=== PATIENT | female | born 1995 | race African-American/Black ===

== ENCOUNTER 2019-10-04 02:04 | Emergency (ER) | payer OTHER ==
[2019-10-04 02:35] VITALS: TEMP 98.1; BMI 21.2
[2019-10-04] MEDS ORDERED: ONDANSETRON 4 MG/2 ML VIAL IVPUSH ONE (02:43)
[2019-10-04] MEDS ORDERED: morphine SULFATE 4 MG/ML VIAL ONE (02:43)
[2019-10-04] MEDS ORDERED: morphine CARPU-JECT 4 MG/1 ML DISP.SYRIN IVPUSH ONE (02:43)
[2019-10-04] MEDS ORDERED: ONDANSETRON 4 MG/2 ML VIAL ONE (02:44)
[2019-10-04] MEDS ORDERED: SODIUM CHLORIDE 1,000 ML IV STA ×2 (02:46→03:01)
--- NOTE | 2019-10-04 03:09 | PDOC ---
Attending Attestation - Resident Resident Name: Wagner Hancock - ED Attending Attestation I have performed the following: I have examined & evaluated the patient, The case was reviewed & discussed with the resident, I agree w/resident's findings & plan - HPI HPI: 10/04/19 05:28 Pt comes with chest pain and a sickle cell crisis. - Physicial Exam PE: 10/04/19 05:39 Low back pain and chest pain Pt has no fever and no chills SHe has no rashes clear chest normal heart rate abd soft NT ND +BS Pt has no neuro deficits. - Medical Decision Making 11/03/19 02:37 Pt feeling better and will go home with analgecis.
--- NOTE | 2019-10-04 03:14 | PDOC ---
History of Present Illness - General Chief Complaint: Pain Stated Complaint: SICKLE CELL ANEMIA Time Seen by Provider: 10/04/19 03:00 - History of Present Illness Initial Comments: 10/04/19 03:01 Ms. Ricketts is a 24 yo female w/ pmh of SCD who presents for evaluation of acute sickle cell crisis. Patient reports this is typical of her crisis and localizes pain to her lower back / gluteal region. Last was several months ago, she does not know what prompted this. Patient reports they were getting ready "to go out" when symptoms of pain started. She denies other symptoms at this time other than pain. Reports morphine works for her pain. The patient denies chest pain, shortness of breath, headache and dizziness. Denies fever, chills, nausea, vomit, diarrhea and constipation. Denies dysuria, frequency, urgency and hematuria. Past History - Past Medical History Allergies/Adverse Reactions: Allergies Allergy/AdvReac Type Severity Reaction Status Date / Time No Known Allergies Allergy Verified 10/04/19 02:33 Home Medications: Ambulatory Orders Oxycodone HCl/Acetaminophen [Percocet 5/325 -] 1 tab PO Q4H PRN #10 tablet 05/24/15 Ferrous Sulfate 325 mg PO BID 08/28/19 Folic Acid 1 mg PO DAILY 08/28/19 Hydroxyurea 500 mg PO BID 08/28/19 Anemia: Yes (SCA) Asthma: No Cancer: No Cardiac Disorders: No CVA: No COPD: No CHF: No Dementia: No Diabetes: No GI Disorders: No Disorders: No HTN: No Hypercholesterolemia: No Liver Disease: No Seizures: No Thyroid Disease: No - Reproductive History Cervical CA: Yes Dysfunctional Uterine Bleeding: Yes Ectopic : Yes Endometrial CA: Yes Polycystic Ovaries: Yes Tubal Ligation: Yes - Immunization History Immunization Up to Date: Yes - Psycho Social/Smoking Cessation Hx Smoking Status: No Smoking History: Never smoked Have you smoked in the past 12 months: No Number of Cigarettes Smoked Daily: 0 If you are a former smoker, when did you quit?: over a year ago Cigars Per Day: 0 Information on smoking cessation initiated: No 'Breaking Loose' booklet given: 04/17/12 Hx Alcohol Use: No Drug/Substance Use Hx: No Substance Use Type: None Hx Substance Use Treatment: No Review of Systems - Review of Systems Comments:: 10/04/19 03:23 GENERAL/CONSTITUTIONAL: No fever or chills. No weakness. HEAD, EYES, EARS, NOSE AND THROAT: No change in vision. No ear pain or discharge. No sore throat. CARDIOVASCULAR: No chest pain or shortness of breath RESPIRATORY: No cough, wheezing, or hemoptysis. GASTROINTESTINAL: No nausea, vomiting, diarrhea or constipation. GENITOURINARY: No dysuria, frequency, or change in urination. MUSCULOSKELETAL: +Back/lower leg pain as described. SKIN: No rash NEUROLOGIC: No headache, vertigo, loss of consciousness, or change in strength/sensation. ENDOCRINE: No increased thirst. No abnormal weight change HEMATOLOGIC/LYMPHATIC: No anemia, easy bleeding, or history of blood clots. ALLERGIC/IMMUNOLOGIC: No hives or skin allergy. *Physical Exam - Vital Signs Last Vital Signs Temp Pulse Resp BP Pulse Ox 98.1 F 73 20 135/95 97 10/04/19 02:15 10/04/19 02:15 10/04/19 02:15 10/04/19 02:15 10/04/19 02:15 - Physical Exam 10/04/19 03:24 GENERAL: Awake, alert, and fully oriented, in no acute distress HEAD: No signs of trauma, normocephalic, atraumatic EYES: PERRLA, EOMI, sclera anicteric, conjunctiva clear ENT: Auricles normal inspection, hearing grossly normal, nares patent, oropharynx clear without exudates. Moist mucosa NECK: Normal ROM, supple, no lymphadenopathy, JVD, or masses LUNGS: No distress, speaks full sentences, clear to auscultation bilaterally HEART: Regular rate and rhythm, normal S1 and S2, no murmurs, rubs or gallops, peripheral pulses normal and equal bilaterally. ABDOMEN: Soft, nontender, normoactive bowel sounds. No guarding, no rebound. No masses EXTREMITIES: Normal inspection, Normal range of motion, no edema. No clubbing or cyanosis. NEUROLOGICAL: Cranial nerves II through XII grossly intact. Normal speech, normal gait, no focal sensorimotor deficits SKIN: Warm, Dry, normal turgor, no rashes or lesions noted. ED Treatment Course - LABORATORY CBC & Chemistry Diagram: 10/04/19 02:59 10/04/19 02:59 - RADIOLOGY Radiology Studies Ordered: Category Date Time Status CHEST PA & LAT [RAD] Stat Radiology 10/04/19 02:46 Ordered - Medications Given in the ED: ED Medications Discontinued Medications Generic Name Dose Route Start Last Admin Trade Name Carrington PRN Reason Stop Dose Admin Morphine Sulfate 4 mg 10/04/19 02:43 10/04/19 02:48 Morphine Injection - IVPUSH 10/04/19 02:44 4 mg ONCE ONE Administration Ondansetron HCl 4 mg 10/04/19 02:43 10/04/19 02:48 Zofran Injection IVPUSH 10/04/19 02:44 4 mg ONCE ONE Administration Medical Decision Making - Medical Decision Making 10/04/19 05:39 Ms. Ricketst is a 24 yo female w/ pmh as described who presents for evaluation of sickle cell crisis. Patient given fluids, oxygen, and 4mg morphine with complete reduction of symptoms. Patient well appearing w/ no concerning findings on laboratory evaluation. Patient will f/u w/ slag dumper as soon as possible outpatient. No concern for acute process at this time. Discharging to home. Discharge - Discharge Information Problems reviewed: Yes Clinical Impression/Diagnosis: Sickle cell crisis Disposition: HOME - Follow up/Referral Referrals: Dm Gutiérrez MD [Primary Care Provider] - - Patient Discharge Instructions Patient Printed Discharge Instructions: DI for Sickle Cell Anemia, Pain Crisis -- Adult Additional Instructions: You were evaluated today in the ER for your pain. We performed labs which were non-concerning and hydrated you. Your symptoms improved with pain medication and hydration. We believe you are safe for discharge at this time. Please follow-up with slag dumper or primary care provider as soon as possible for further evaluation. Return to ER if any return of pain, fever, chills, or other concerning symptoms. - Post Discharge Activity
[2019-10-04 03:19] LABS: BASO % 1.1 % (0-2.0); EOS % 3.2 % (0-4.5); HEMATOCRIT 26.3 % (32.4-45.2); HEMOGLOBIN 8.6 GM/dL (10.7-15.3); LYMPH % 33.1 % (8-40); MCH 23.4 pg (25.7-33.7); MCHC 32.5 g/dl (32.0-36.0); MEAN CELL VOLUME 71.9 fl (80-96); MEAN PLT VOLUME 9.3 fl (7.5-11.1); MONO % 7.2 % (3.8-10.2); NEUT % 55.4 % (42.8-82.8); PLATELET COUNT 414 K/MM3 (134-434); RBC 3.66 M/mm3 (3.60-5.2); RDW 20.8 % (11.6-15.6); WHITE BLOOD COUNT 15.2 K/mm3 (4.0-10.0)
[2019-10-04 03:48] LABS: ALBUMIN 4.4 g/dl (3.4-5.0); BILIRUBIN,TOTAL 1.6 mg/dL (0.2-1); BLOOD UREA NITROGEN 8.9 mg/dL (7-18); CREATININE 0.5 mg/dL (0.55-1.3); POTASSIUM 4.1 mmol/L (3.5-5.1); TOT PROT 8.2 g/dl (6.4-8.2)
[2019-10-04] MEDS ORDERED: ACETAMINOPHEN 325 MG TABLET (FP) ONE (03:58)
[2019-10-04 04:15] LABS: ANISOCYTOSIS 3+; CORRECTED WBC 13.57 K/mm3; MACROCYTOSIS 0; PLATELET ESTIMATE NORMAL; SICKELED CELLS 1+; TARGET CELLS 3+
[2019-10-04 04:16] LABS: PH,URINE 6.5 (5.0-8.0); URINE APPEARANCE CLEAR; URINE BILIRUBIN NEGATIVE (NEGATIVE); URINE COLOR YELLOW; URINE GLUCOSE (UA) NEGATIVE (NEGATIVE); URINE KETONE NEGATIVE (NEGATIVE); URINE LEUK ESTERASE NEGATIVE (NEGATIVE); URINE NITRITE NEGATIVE (NEGATIVE); URINE PROTEIN NEGATIVE (NEGATIVE); URINE UROBILINOGEN 0.2 mg/dL (0.2-1.0)
[2019-10-04] MEDS ORDERED: LIDOCAINE 5% TOPICAL PATCH TP ONE (06:02)
[2019-10-04 06:32] VITALS: BP 145/84; PULSE 75
[2019-10-04] MEDS ORDERED: LIDOCAINE PATCH REMOVAL MC ONE (19:00)
== END 2019-10-04 06:30 | disposition home or self-care (01) ==
LOC: JER 02:04
PROC: 3E033NZ Introduction of Analgesics, Hypnotics, Sedatives into Peripheral Vein, Percutaneous Approach (ICD-10-PCS; principal; 2019-10-04)
PROC: 3E033GC Introduction of Other Therapeutic Substance into Peripheral Vein, Percutaneous Approach (ICD-10-PCS; 2019-10-04)
DX: D57.00 Hb-SS disease with crisis, unspecified (principal); M54.5 Low back pain; R07.9 Chest pain, unspecified; Z87.42 Personal history of other diseases of the female genital tract; Z98.51 Tubal ligation status; Z85.41 Personal history of malignant neoplasm of cervix uteri; Z85.44 Personal history of malignant neoplasm of other female genital organs
CPT/HCPCS: 36415; 71046-TC-FY; 80053; 81003; 84703; 85025; 85044; 87040; 87086; 99283-25; J7030

== ENCOUNTER 2020-03-15 06:09 | Day surgery (SDC) | payer OTHER ==
[2020-03-11 17:42] VITALS: BMI 19.8
[2020-03-15 06:41] LABS: BASO % 1.2 % (0-2.0); EOS % 2.7 % (0-4.5); HEMATOCRIT 23.7 % (32.4-45.2); HEMOGLOBIN 7.5 GM/dL (10.7-15.3); LYMPH % 34.6 % (8-40); MCH 21.4 pg (25.7-33.7); MCHC 31.6 g/dl (32.0-36.0); MEAN CELL VOLUME 67.9 fl (80-96); MEAN PLT VOLUME 8.5 fl (7.5-11.1); MONO % 9.4 % (3.8-10.2); NEUT % 52.1 % (42.8-82.8); PLATELET COUNT 464 K/MM3 (134-434); RDW 22.2 % (11.6-15.6); WHITE BLOOD COUNT 12.9 K/mm3 (4.0-10.0)
[2020-03-15 07:24] VITALS: BP 134/87; PULSE 75; TEMP 97.8
[2020-03-15 09:16] LABS: ANISOCYTOSIS 3+; MACROCYTOSIS 0; PLATELET ESTIMATE NORMAL; SICKELED CELLS 1+; TARGET CELLS 3+
[2020-03-15] MEDS ORDERED: oxyCODONE HCL 5 MG TABLET PO PRN (10:04)
[2020-03-15] MEDS ORDERED: ACETAMINOPHEN 325 MG TABLET (FP) PO PRN (10:04)
[2020-03-15] MEDS ORDERED: IBUPROFEN 400 MG TABLET (FP) PO PRN (10:04)
--- NOTE | 2020-03-15 10:08 | HP ---
Admitting History and Physical - Admission History of Present Illness: 25 yo with BALTA 2 for Loop electrosurgical excisional procedure History Source: Patient Limitations to Obtaining History: No Limitations - Past Medical History Cardiovascular: No: HTN ...LMP: 02/13/20 ...: No Heme/Onc: Yes: Sickle Cell Disease - Smoking History Smoking history: Never smoked Have you smoked in the past 12 months: No Aproximately how many cigarettes per day: 0 If you are a former smoker, when did you quit?: over a year ago - Alcohol/Substance Use Hx Alcohol Use: No Home Medications - Allergies Allergies/Adverse Reactions: Allergies Allergy/AdvReac Type Severity Reaction Status Date / Time No Known Allergies Allergy Verified 03/15/20 07:38 - Home Medications Home Medications: Ambulatory Orders Ferrous Sulfate 325 mg PO DAILY 08/28/19 Folic Acid 1 mg PO DAILY 08/28/19 Family Medical History Family History: Denies Review of Systems - Review of Systems Constitutional: reports: No Symptoms Cardiovascular: reports: No Symptoms Respiratory: reports: No Symptoms Physical Examination Vital Signs: Vital Signs Temperature 97.8 F 03/15/20 07:24 Pulse Rate 75 03/15/20 07:24 Respiratory Rate 16 03/15/20 07:24 Blood Pressure 134/87 03/15/20 07:24 O2 Sat by Pulse Oximetry (%) 98 03/15/20 07:24 Labs: CBC, BMP 03/15/20 06:20
== END 2020-03-15 10:30 | disposition home or self-care (01) ==
LOC: JASU-SURG 06:09
PROVIDERS: ATTEND Obstetrics & Gynecology
DX: Z53.8 Procedure and treatment not carried out for other reasons (principal)
CPT/HCPCS: 36415; 84703; 85025; 86850; 86900; 86901

== ENCOUNTER 2020-03-17 10:30 | Day surgery (SDC) | payer OTHER ==
[2020-03-16 13:07] VITALS: BMI 19.8
[2020-03-17] MEDS ORDERED: IBUPROFEN 800 MG/8 ML IJ IVPB PRN (12:28)
[2020-03-17] MEDS ORDERED: ONDANSETRON 4 MG/2 ML VIAL IVPUSH PRN (12:28)
[2020-03-17] MEDS ORDERED: oxyCODONE HCL 5 MG TABLET PO PRN (12:28)
[2020-03-17] MEDS ORDERED: LACTATED RINGERS SOLUTION 1,000 ML IV SCH (12:30)
[2020-03-17] MEDS ORDERED: MIDAZOLAM HCL 2 MG/2 ML SINGLE DOSE VIAL ONE (12:46)
[2020-03-17] MEDS ORDERED: PROPOFOL 20 ML ONE (12:46)
[2020-03-17] MEDS ORDERED: IODINE/POTASSIUM IODIDE 5%/10% 14 ML BOTTLE NR ONE (13:20)
[2020-03-17] MEDS ORDERED: DEXAMETHASONE SOD PHOSPHATE 4 MG/1 ML VIAL ONE (13:23)
--- NOTE | 2020-03-17 13:40 | HP ---
Admitting History and Physical - Admission History of Present Illness: 25 yo with hx/o persistent BALTA 1 and BALTA 2 for LEEP History Source: Patient Limitations to Obtaining History: No Limitations - Past Medical History Cardiovascular: No: HTN Pulmonary: No: Asthma ...LMP: 02/13/20 Heme/Onc: Yes: Sickle Cell Disease - Past Surgical History Additional Past Surgical History: eTOP - Smoking History Smoking history: Never smoked Have you smoked in the past 12 months: No Aproximately how many cigarettes per day: 0 If you are a former smoker, when did you quit?: over a year ago - Alcohol/Substance Use Hx Alcohol Use: No History of Substance Use: reports: None Home Medications - Allergies Allergies/Adverse Reactions: Allergies Allergy/AdvReac Type Severity Reaction Status Date / Time No Known Allergies Allergy Verified 03/16/20 13:02 - Home Medications Home Medications: Ambulatory Orders Ferrous Sulfate 325 mg PO DAILY 08/28/19 Folic Acid 1 mg PO DAILY 08/28/19 Family Medical History Family History: Denies Review of Systems - Review of Systems Constitutional: reports: No Symptoms Cardiovascular: reports: No Symptoms Respiratory: reports: No Symptoms Gastrointestinal: reports: No Symptoms Genitourinary: reports: No Symptoms Neurological: reports: No Symptoms Endocrine: reports: No Symptoms Hematology/Lymphatic: reports: No Symptoms Physical Examination Vital Signs: Vital Signs Temperature 97.7 F 03/17/20 11:14 Pulse Rate 69 03/17/20 11:14 Respiratory Rate 18 03/17/20 11:14 Blood Pressure 117/70 03/17/20 11:14 O2 Sat by Pulse Oximetry (%) 97 03/17/20 11:14 Constitutional: Yes: Well Nourished, No Distress, Calm Cardiovascular: Yes: Regular Rate and Rhythm Respiratory: Yes: Regular, CTA Bilaterally Gastrointestinal: Yes: Soft Edema: No Assessment/Plan 25 yo with BALTA 2 / persistent BALTA for LEEP 1 1. Consents reviewed and signed Risks, benefits, alternatives, complications discussed including but not limited to infection, bleeding, damage to surrounding organs, cervical stenosis, labor. Also reviewed may encounter unknown risks during covid pandemic 2. SCDs dvt prophylaxis 3. No antibiotics indicated 4. Routine labs reviewe,d COvid negative 5. Will proceed to OR
--- NOTE | 2020-03-17 13:42 | OP ---
Operative Note - Note: Operative Date: 03/17/20 Pre-Operative Diagnosis: BALTA 2, persistent BALTA 1 Operation: Loop Electrosurgical Excisional procedure, Colposcopy, ECC Findings: lesion noted from 8:00 - 2:00 Post-Operative Diagnosis: Same as Pre-op Surgeon: Elle Wang Anesthesiologist/ACIDITY TESTER: Nisha Almanza Anesthesia: General Specimens Removed: 1. Cervical biopsy. 2. Cervical margin at 12:00. 3. ECC Estimated Blood Loss (mls): 5 Fluid Volume Replaced (mls): 400 Operative Report Dictated: Yes
[2020-03-17] MEDS ORDERED: IBUPROFEN 800 MG/8 ML IJ IVPB ONE (14:27)
[2020-03-17 15:34] VITALS: BP 135/75; PULSE 58; TEMP 97.5
--- NOTE | 2020-03-18 19:29 | OP ---
DATE OF OPERATION: 03/17/2020 PREOPERATIVE DIAGNOSIS: Moderate cervical dysplasia, cervical intraepithelial neoplasia 2, and persistent cervical dysplasia. POSTOPERATIVE DIAGNOSIS: Moderate cervical dysplasia, cervical intraepithelial neoplasia 2, and persistent cervical dysplasia. PROCEDURE: LOOP electrosurgical excisional procedure and endocervical curetting. SURGEON: Jimmy Wang MD. ANESTHESIOLOGIST: Nisha Almanza MD. INTRAVENOUS FLUIDS GIVEN: 400. ESTIMATED BLOOD LOSS: 5. 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 She was counseled regarding all surgical options and opted for LOOP electrosurgical excisional procedure. Consents reviewed and signed. The risks, benefits, alternatives, and complications to procedure were discussed including infection, bleeding, damage to surrounding organs, possible risk of shortened cervix and infertility and cervical scarring. Also discussed risk of surgery during COVID pandemic. She expressed understanding, was brought to the operating room. DESCRIPTION OF PROCEDURE: When anesthesia was found to be adequate, patient was prepped and draped in normal sterile fashion, placed in dorsal lithotomy position. A colposcopy was performed, Lugol solution placed on the cervix, and lesion was noted extending from approximately 8 o'clock to 1 o'clock and a 2 mm x 1 mm LOOP electrode was used to excise the transformation zone one piece. The specimen was tagged 6 o'clock and 3 o'clock, and specimen was sent to pathology. Additional excision was taken at 12 o'clock and endocervical curetting was performed. All instruments were removed. Surgicel was placed on the cervical bed. Rollerball was used to cauterize the cervical bed. All instruments were removed from the patient's vagina. Good hemostasis was noted. Patient was awoken from anesthesia, brought to recovery room in stable condition. JIMMY WANG M.D. [id number] MTDD
--- NOTE | 2020-03-24 11:13 | PATH ---
Surgical Pathology Report Patient Name: DAISY NICOLE [facility]. Rec. #: [id number] /Age/Gender: 1995 (Age: 25) / F Account: [id number] Location: [facility] Taken: 03/17/2020 Received: 03/18/2020 Reported: 03/24/2020 Physicians: Elle Wang Specimen(s) Received A: CERVIX LEEP CONE BIOPSY B: LEEP 12:00 MARGIN C: ENDOCERVICAL CURETTINGS Clinical History Mild cervix dysplasia, BALTA II on colposcopy at 12:00 biopsy/negative ECC on colposcopy- 02/10/20 Final Diagnosis A. CERVIX, LOOP ELECTROSURGICAL EXCISION PROCEDURE (LEEP)/CONE BIOPSY: CERVICAL SQUAMOUS AND ENDOCERVICAL MUCOSA WITH HIGH GRADE SQUAMOUS INTRAEPITHELIAL LESION (CERVICAL INTRAEPITHELIAL NEOPLASIA 2/ BALTA 2) AND FOCAL GLANDULAR INVOLVEMENT IN QUADRANTS 12-3:00, 6-9:00, 9-12:00; AREAS OF LOW GRADE SQUAMOUS INTRAEPITHELIAL LESION ALSO PRESENT. SURGICAL RESECTION MARGINS: NEGATIVE FOR HIGH GRADE DYSPLASIA. TRANSFORMATION ZONE: PRESENT. SEE COMMENT. B. CERVIX, 12:00 MARGIN, LOOP ELECTROSURGICAL EXCISION PROCEDURE (LEEP): BENIGN CERVICAL SQUAMOUS AND ENDOCERVICAL MUCOSA. NO DYSPLASIA IDENTIFIED. TRANSFORMATION ZONE: PRESENT. C. ENDOCERVICAL CURETTINGS, DILATION AND CURETTAGE: FRAGMENTS OF BENIGN CERVICAL TISSUE. SEE COMMENT. 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 P16 is negative in the endocervical curettings (part C). Proliferative marker, ki-67, highlights mitosis and utilized to evaluate this case (A,C). Positive and negative controls (internal if applicable) show appropriate results. Electronically Signed Suyapa Mota M.D. Gross Description A. Received in formalin labeled "cervix biopsy LEEP," is a 1.8 cm in diameter annular cervical LEEP cone biopsy. There is a long suture marking the 3:00 aspect and a short suture marking the 6:00 aspect of the specimen, per the surgeon. The specimen is partially surfaced by a franco, shiny glistening mucosa. The specimen is inked blue and sectioned. The specimen is entirely submitted in 4 cassettes as follows: 1-12:00 to 3:00; 2-3:00 to 6:00; 3-6:00 to 9:00; 4-9:00 to 12:00. B. Received in formalin labeled "LEEP at 12:00 margin," is a 2.2 x 1.0 x 0.3 cm franco, irregular, unoriented portion of tissue, consistent with a cervix biopsy. The specimen is inked blue, serially sectioned and entirely submitted in 2 cassettes. C. Received in formalin labeled "endocervical curettings," is a 0.6 x 0.5 x 0.1 cm aggregate of franco soft tissue fragments admixed with mucus. The formalin is filtered and the specimen is entirely submitted in one cassette. 03/18/2020 [facility]03/18/2020
== END 2020-03-17 15:35 | disposition home or self-care (01) ==
LOC: JASU-SURG 10:30
PROVIDERS: ATTEND Obstetrics & Gynecology
PROC: 0UBC7ZX Excision of Cervix, Via Natural or Artificial Opening, Diagnostic (ICD-10-PCS; principal; 2020-03-17 12:30)
DX: N87.1 Moderate cervical dysplasia (principal); D57.1 Sickle-cell disease without crisis
CPT/HCPCS: 88305-TC; 88307-TC; 94760

== ENCOUNTER 2020-08-08 23:01 | Emergency (ER) | payer OTHER ==
[2020-08-08 23:06] VITALS: BP 138/86; PULSE 93; TEMP 97.2; BMI 33.5
== END 2020-08-09 00:09 | disposition home or self-care (01) ==
LOC: JER 23:01
DX: T17.1XXA Foreign body in nostril, initial encounter (principal)
CPT/HCPCS: 99282-25

== ENCOUNTER → 2023-08-10 | Emergency (ER) | payer OTHER ==
[2023-08-10 07:23] VITALS: BP 149/89; PULSE 83; RESP 20; TEMP 98.4; BMI 20.3
== END ==
LOC: JER 07:12
DX: D57.00 Hb-SS disease with crisis, unspecified (principal); M25.561 Pain in right knee; M25.562 Pain in left knee
CPT/HCPCS: 99281-25